=== PATIENT | female | born 1955 | race Caucasian/White ===

== ENCOUNTER 2016-10-10 19:47 | Emergency (ER) | payer BC ==
[2016-10-10] MEDS ORDERED: Sodium Chloride 0.9% 10 ML Syringe FLUSH PRN (20:25)
[2016-10-10] MEDS ORDERED: Sodium Chloride 0.9% 1,000 ML IV ONE (20:25)
[2016-10-10] MEDS ORDERED: Ondansetron 4 MG/2 ML SDV IVPUSH ONE (20:26)
--- NOTE | 2016-10-10 20:42 | EDM.PDOC ---
ED HPI GENERAL MEDICAL PROBLEM - General Chief Complaint: Abdominal Pain Stated Complaint: PAIN IN LOWER BACK DRY HEAVING MOST OF THE DAY Time Seen by Provider: 10/10/16 20:30 Source of Information: Reports: Patient History Limitations: Reports: No Limitations - History of Present Illness INITIAL COMMENTS - FREE TEXT/NARRATIVE: Esperanza is a 61 year old female who presents to the ED today with c/o generalized abdominal pain, back pain and nausea for the last 3 days. Patient denies any vomiting, she denies any blood in her stool. Patient denies any dysuria or fever. 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 History: Reports: , Spontaneous Musculoskeletal History: Reports: Fracture Other Musculoskeletal History: l shoulder, jaw Neurological History: Reports: Other (See Below) Other Neuro History: Headaches Psychiatric History: Reports: Anxiety Dermatologic History: Reports: Eczema - Infectious Disease History Infectious Disease History: Reports: Chicken Pox - Past Surgical History HEENT Surgical History: Reports: Tonsillectomy GI Surgical History: Reports: Colonoscopy Dermatological Surgical History: Reports: Skin Biopsy Social & Family History - Tobacco Use Smoking Status *Q: Never Smoker Second Hand Smoke Exposure: Yes - Caffeine Use Caffeine Use: Reports: Coffee, Tea - Recreational Drug Use Recreational Drug Use: No ED ROS GENERAL - Review of Systems Review Of Systems: ROS reveals no pertinent complaints other than HPI. ED EXAM, GI/ABD - Physical Exam Exam: See Below Exam Limited By: No Limitations General Appearance: Alert, WD/WN, No Apparent Distress Ears: Normal External Exam Throat/Mouth: Normal Inspection, Normal Oropharynx Head: Atraumatic Respiratory/Chest: No Respiratory Distress, Normal Breath Sounds Cardiovascular: Normal Peripheral Pulses, Regular Rate, Rhythm, No Murmur GI/Abdominal: Normal Bowel Sounds, Soft, No Organomegaly, No Distention, Other ( generalized abdominal tenderness, more so in RLQ) Neurological: Alert, Oriented Psychiatric: Normal Affect Skin Exam: Warm, Dry Lymphatic: No Adenopathy Course - Vital Signs Text/Narrative:: Esperanza is a 61 year old otherwise healthy female who presents to the ED today with c/o generalized abdominal pain and back pain. Please refer to HPI and focused exam. Patient on exam is well hydrated, she is non-toxic appearing. Her exam does show some mild tenderness, more intense over the RLQ. PIV started and patient was given a liter of NS. Patient was given zofran for nausea with good improvement. She declines any offer for pain medication. Blood work including CBC and CMP are rather unremarkable except for very mild leukocytosis and mildly elevated alkaline phosphatase, likely consistent with mild dehydration. CT scan obtained and is unremarkable. UA negative for infection. I feel patient's symptoms are likely viral in nature. I feel she is stable to be discharged home with ongoing supportive care. I encouraged hydration. I did offer zofran for home which patient declined. I did encourage patient to follow up with PCP if symptoms do not improve over the next few days, reasons to return to the ED discussed in detail. Patient agreeable to plan of care and questions were answered prior to discharge. Patient discharged in stable condition with her driving. Last Recorded V/S: Last Vital Signs Temp 37.2 C 10/10/16 20:13 Pulse 73 10/10/16 22:12 Resp 16 10/10/16 22:12 BP 145/80 H 10/10/16 22:12 Pulse Ox 98 10/10/16 22:12 - Orders/Labs/Meds Orders: Active Orders 24 hr Category Date Time Status Peripheral IV Care [RC] . DIRECTED Care 10/10/16 20:25 Active Abdomen Pelvis w Cont [CT] Stat Exams 10/10/16 21:07 Taken Sodium Chloride 0.9% [Saline Flush] Med 10/10/16 20:25 Active 10 ml FLUSH ASDIRECTED PRN Peripheral IV Insertion Adult [OM.PC] Routine Oth 10/10/16 20:25 Ordered Medication Orders Sodium Chloride (Saline Flush) 10 ml FLUSH ASDIRECTED PRN PRN Reason: Keep Vein Open Labs: Laboratory Tests 10/10/16 10/10/16 10/10/16 Range/Units 20:33 20:37 20:37 WBC 11.1 H (4.5-11.0) K/uL RBC 4.56 (3.30-5.50) M/uL Hgb 13.8 (12.0-15.0) g/dL Hct 40.6 (36.0-48.0) % MCV 89 (80-98) fL MCH 30 (27-31) pg MCHC 34 (32-36) % Plt Count 368 (150-400) K/uL Neut % (Auto) 75 H (36-66) % Lymph % (Auto) 17 L (24-44) % [place] % (Auto) 7 H (2-6) % Eos % (Auto) 1 L (2-4) % Baso % (Auto) 0 (0-1) % Sodium 140 (140-148) mmol/L Potassium 3.8 (3.6-5.2) mmol/L Chloride 103 (100-108) mmol/L Carbon Dioxide 27 (21-32) mmol/L Anion Gap 10.1 (5.0-14.0) mmol/L BUN 8 (7-18) mg/dL Creatinine 1.0 (0.6-1.0) mg/dL Est Cr Clr Drug Dosing 57.45 mL/min Estimated GFR (MDRD) 56 L (>60) Glucose 117 H (74-106) mg/dL Calcium 8.9 (8.5-10.1) mg/dL Total Bilirubin 0.6 (0.2-1.0) mg/dL AST 22 (15-37) U/L ALT 32 (12-78) U/L Alkaline Phosphatase 119 H (46-116) U/L Total Protein 6.9 (6.4-8.2) g/dL Albumin 3.4 (3.4-5.0) g/dL Globulin 3.5 (2.3-3.5) g/dL Albumin/Globulin Ratio 1.0 L (1.2-2.2) Urine Color Yellow Urine Appearance Clear Urine pH 5.0 (4.5-8.0) Ur Specific [place] 1.030 (1.008-1.030) Urine Protein Negative (NEGATIVE) mg/dL Urine Glucose (UA) Normal (NEGATIVE) mg/dL Urine Ketones 50 H (NEGATIVE) mg/dL Urine Occult Blood Negative (NEGATIVE) Urine Nitrite Negative (NEGATIVE) Urine Bilirubin Negative (NEGATIVE) Urine Urobilinogen Normal (NORMAL) mg/dL Ur Leukocyte Esterase Negative (NEGATIVE) Urine RBC 0-5 (0-5) Urine WBC 0-5 (0-5) Ur Epithelial Cells Few Amorphous Sediment Not seen Urine Bacteria Moderate Urine Mucus Many Meds: Medications Generic Name Dose Route Start Last Admin Trade Name F[place]acy PRN Reason Stop Dose Admin Sodium Chloride 10 ml 10/10/16 20:25 Saline Flush FLUSH ASDIRECTED PRN Keep Vein Open Discontinued Medications Generic Name Dose Route Start Last Admin Trade Name F[place]acy PRN Reason Stop Dose Admin Sodium Chloride 1,000 mls @ 999 mls/hr 10/10/16 20:25 10/10/16 20:44 Normal Saline IV 10/10/16 21:25 999 mls/hr .BOLUS ONE Administration Sodium Chloride 70 mls @ 3 mls/sec 10/10/16 21:20 10/10/16 21:44 Normal Saline IV 10/10/16 21:21 3 mls/sec ASDIRECTED ONE Administration Iopamidol 150 ml 10/10/16 21:20 10/10/16 21:44 Isovue-300 (61%) IV 10/10/16 21:21 150 ml . DIRECTED PRN Administration RADIOLOGY EXAM Ondansetron HCl 4 mg 10/10/16 20:26 10/10/16 20:45 Zofran IVPUSH 10/10/16 20:27 4 mg ONETIME ONE Administration Departure - Departure Time of Disposition: 23:15 Disposition: Home, Self-Care 01 Condition: Good Clinical Impression: Abdominal pain Qualifiers: Abdominal location: generalized Qualified Code(s): R10.84 - Generalized abdominal pain - Discharge Information Instructions: Abdominal Pain, Adult, [id number] Forms: ED Department Discharge Additional Instructions: Esperanza, Keep well hydrated. If your symptoms do not improve please follow up with your primary care provider. Return here with any worsening symptoms. It was nice meeting, take care and I hope you feel better soon - My Orders Last 24 Hours: My Active Orders 10/10/16 20:25 Peripheral IV Care [RC] . DIRECTED Sodium Chloride 0.9% [Saline Flush] 10 ml FLUSH ASDIRECTED PRN Peripheral IV Insertion Adult [OM.PC] Routine 10/10/16 21:07 Abdomen Pelvis w Cont [CT] Stat - Assessment/Plan Last 24 Hours: My Active Orders 10/10/16 20:25 Peripheral IV Care [RC] . DIRECTED Sodium Chloride 0.9% [Saline Flush] 10 ml FLUSH ASDIRECTED PRN Peripheral IV Insertion Adult [OM.PC] Routine 10/10/16 21:07 Abdomen Pelvis w Cont [CT] Stat
[2016-10-10] MEDS ORDERED: Iopamidol 612 MG/ML 150 ML Bottle IV PRN (21:20)
[2016-10-10 23:01] VITALS: BP 151/83
== END 2016-10-10 23:01 | disposition home or self-care (01) ==
LOC: JP.ED 19:47
DX: R10.84 Generalized abdominal pain (principal); H54.7 Unspecified visual loss; F41.9 Anxiety disorder, unspecified; Z90.49 Acquired absence of other specified parts of digestive tract
CPT/HCPCS: 36415; 74177; 80053; 81001; 85025; 96361; 96374; 99284; J2405; J7030; J7040